=== PATIENT | female | born 1950 | race Caucasian/White ===

== ENCOUNTER 2017-04-27 19:56 | Emergency (ER) | payer MEDICARE, BC ==
[~2017-04-27 19:56] MED LIST: AL-MAG HYDROX-S30 M1 PO; ALDACTONE25 MG PO; ALLEGRA ALLERG180 MG PO; ALLEGRA-D1 TAB.SR1 PO; ALTOPREV40 MG PO; ASPIR-TRIN325 MG PO; BAYER ASPIRIN325 M1 PO; CARVEDILOL25 MG PO; COATED ASPIRIN325 M1 PO; COREG PO; CORLANOR5 MG PO; EFFIENT10 MG PO; ESCITALOPRAM OX10 MG PO; FLEXERIL10 MG PO; FUROSEMIDE40 MG PO; HUMALOG100 U/ML SUBQ; IMDUR-ER60 M1 PO; IMDUR-ER60 MG PO; LANTUS100 U/ML SUBQ; LANTUS100 UNITS/ SUBQ; LASIX PO; LASIX20 MG PO; LASIX80 MG PO; LISINOPRIL10 MG PO; METFORMIN PO; MEVACOR40 MG PO; NITROGLYCERIN0.4 MG SL; NITROQUICK0.4 MG SL; NORVASC PO; NORVASC10 MG PO; OMEPRAZOLE40 M1 PO; PREMPRO PO; PRILOSEC PO; PRILOSEC40 MG PO; RANEXA500 MG PO; TRAMADOL HCL50 M1 PO; TRILIPIX135 MG PO; VICTOZA0.6 MG/0.1 SQ; VICTOZA0.6 MG/0.1 SUBQ; VIT E PO; VITAMIN E400 UNI1 PO; VOLTAREN50 MG PO; ZESTORETIC 20-1 EACH PO; ZESTRIL40 MG PO
[2017-04-27 21:13] LABS: BASOPHIL% 0.3 % (0-2.5); EOSINOPHIL# 0.1 X10e3 (0-0.7); EOSINOPHIL% 1.2 % (0.0-7.0); HEMATOCRIT 35.8 % (35.0-45.0); HEMOGLOBIN 11.7 gm/dL (12.0-16.0); LYMPHOCYTE# 0.8 X10e3 (1.0-3.5); LYMPHOCYTE% 12.4 % (17.0-45.0); MEAN CELL VOLUME 92.7 FL (83-96); MEAN CORPUSCULAR HEMOGLOBIN 30.1 PG (28-34); MEAN CORPUSCULAR HGB CONC 32.5 g/dL (30-36); MONOCYTE# 0.6 X10e3 (0-1.0); MONOCYTE% 8.6 % (3.0-12.0); NEUTROPHIL# 5.2 X10e3 (1.5-7.1); NEUTROPHIL% 77.5 % (40-75); PLATELET COUNT 149 X10e3 (140-420); RED BLOOD COUNT 3.87 X10e (3.90-5.30); WHITE BLOOD COUNT 6.8 X10e3 (4.0-10.5)
[2017-04-27 21:15] LABS: DIFF IND NO
[2017-04-27 21:34] LABS: ALBUMIN SERUM 3.9 g/dL (3.5-5.0); BILIRUBIN, DIRECT 0.1 mg/dL (0.0-0.2); BILIRUBIN,INDIRECT 0.5 mg/dL (0.0-0.9); BILIRUBIN,TOTAL 0.6 mg/dL (0.2-2.0); BUN/CREATININE RATIO 26.36; CALCIUM SERUM 9.1 mg/dL (8.4-10.2); CREATININE SERUM 1.1 mg/dL (0.6-1.4); GLOM FILT RATE Estimated 51.9 mL/min (>60); POTASSIUM 4.1 mmol/L (3.5-5.1); PROTEIN TOTAL SERUM 6.5 g/dL (6.0-8.3)
[2017-04-27 21:35] LABS: URINE SOURCE CLEAN CATCH
[2017-04-27 22:03] LABS: CULTURE INDICATED? YES; URBCS1 AUWI 0-2 /[HPF] (0-2); URINE APPEARANCE CLEAR; URINE BACTERIA AUWI NEG (NEGATIVE); URINE BILIRUBIN NEG (NEG); URINE BLOOD NEG (NEG); URINE COLOR YELLOW; URINE GLUCOSE 500 MG/DL (NEG); URINE KETONE NEG (NEG); URINE LEUKOCYTE ESTERASE 1+ (NEG); URINE NITRATE NEG (NEG); URINE PROTEIN NEG (NEG); URINE SPECIFIC GRAVITY 1.016 (1.003-1.035); URINE SQUAMOUS EPITHELIAL CELL OCC /[HPF]; URINE UROBILINOGEN 0.2 MG/DL (NEG)
== END 2017-04-27 23:07 | disposition home or self-care (01) ==
LOC: CED 19:56
PROVIDERS: Emergency Medicine
DX: T68.XXXA Hypothermia, initial encounter (principal); E11.649 Type 2 diabetes mellitus with hypoglycemia without coma; I50.9 Heart failure, unspecified; Z88.0 Allergy status to penicillin; Z88.1 Allergy status to other antibiotic agents; Z88.5 Allergy status to narcotic agent
CPT/HCPCS: 36415; 80048; 80076; 81003; 82947; 85025; 87086; 99285